=== PATIENT | male | born 1975 | race Caucasian/White ===

== ENCOUNTER 2018-12-10 22:40 | Emergency (ER) | payer SELFPAY ==
[~2018-12-10] VITALS: Ht 182.9 cm; Wt 113.6 kg
[2018-12-10] MEDS ORDERED: ZIPRASIDONE 20MG CAPSULE ONE (22:58)
[2018-12-10] MEDS ORDERED: LORazepam 1MG TABLET ONE (22:59)
[2018-12-10] MEDS ORDERED: PLEASE ENTER ALLERGIES MC SCH (23:00)
[2018-12-10] MEDS ORDERED: LORazepam 1MG TABLET PO ONE (23:00)
[2018-12-10] MEDS ORDERED: ZIPRASIDONE 20MG CAPSULE PO ONE (23:00)
[2018-12-10] MEDS ORDERED: IBUPROFEN 600 MG TABLET PO ONE (23:30)
[2018-12-10] MEDS ORDERED: IBUPROFEN 600 MG TABLET ONE (23:36)
[2018-12-11 00:16] VITALS: BP 114/74
== END 2018-12-11 00:18 | disposition home or self-care (01) ==
LOC: ED 12-11 00:05
DX: F41.1 Generalized anxiety disorder (principal)
CPT/HCPCS: 99284